=== PATIENT | male | born 1970 | race Asian ===

== ENCOUNTER 2019-01-31 09:18 | Outpatient (CLI) | payer SELFPAY | END 2019-01-31 09:19 | disposition EMS.NT | LOC: EMS 09:18 | PROVIDERS: ATTEND Surgery | DX: R42 Dizziness and giddiness (principal); R53.1 Weakness ==

== ENCOUNTER 2019-10-23 13:20 | Outpatient (CLI) | payer MEDICARE | END 2019-10-23 13:21 | disposition home or self-care (01) | LOC: COV 13:20 | PROVIDERS: ATTEND Family Medicine | DX: Z20.828 Contact with and (suspected) exposure to other viral communicable diseases (principal) ==

== ENCOUNTER 2019-12-13 07:34 | Outpatient (CLI) | payer MEDICARE | END 2019-12-13 07:35 | disposition critical access hospital (66) | LOC: EMS 07:34 | PROVIDERS: ATTEND Surgery | DX: R47.81 Slurred speech (principal); R26.9 Unspecified abnormalities of gait and mobility | CPT/HCPCS: A0425; A0427 ==

== ENCOUNTER 2019-12-13 07:56 | Emergency (ER) | payer MEDICARE ==
[2019-12-13] MEDS ORDERED: SODIUM CHLORIDE 0.9% 1,000 ML IV STA (08:02)
--- NOTE | 2019-12-13 08:05 | ED Physician Documentation ---
PD HPI FOCAL NEURO - Stated complaint Stated Complaint: POSS STROKE - History obtained from History obtained from: Patient, EMS - History of Present Illness Timing - onset: Today (awoke with symptoms of trouble speaking and walking, increased right arm and leg weakness. Had dialysis yesterday without problems. [place] usual baseline going to bed last night.) Timing - duration: Hours (Unknown onset but sometime between last night and this morning.) Timing - details: Abrupt onset, Still present Severity of deficit: Moderate Weakness: Arm, Leg, Left Numbness: Arm, Leg, Left Associated symptoms: Other (trouble speaking today). No: Headache, Nausea / vomiting, Fall, Head injury Baseline status: positive: Cane Similar symptoms before: Other (remote CVA with some residual weakness of leg. Not to this degree.) Recently seen: Clinic (dialysis yesterday) Review of Systems Ten Systems: 10 systems reviewed and negative Constitutional: denies: Fever, Chills Nose: denies: Rhinorrhea / runny nose, Congestion Throat: denies: Sore throat Cardiac: denies: Chest pain / pressure, Palpitations Respiratory: denies: Dyspnea, Cough GI: denies: Abdominal Pain, Nausea, Vomiting, Diarrhea Neurologic: reports: Focal weakness, Difficulty speaking. denies: Generalized weakness, Near syncope, Headache, Head injury Endocrine: denies: Weight loss Immunocompromised: denies: Immunocompromised PD PAST MEDICAL HISTORY - Past Medical History Cardiovascular: Hypertension Endocrine/Autoimmune: Type 1 diabetes - Past Surgical History Past Surgical History: No - Present Medications Home Medications: Ambulatory Orders Medication Instructions Recorded Confirmed Insulin NPH Human [NovoLIN N] 16 unit SQ BID 12/24/12 12/13/19 Insulin Regular, Human [Humulin R] 12 units INJ BID 12/24/12 12/24/12 Bumetanide 2 mg PO BID 12/13/19 12/13/19 Calcium Acetate [Phoslo] 667 mg PO TIDWM 12/13/19 12/13/19 Clopidogrel [Plavix] 75 mg PO DAILY 12/13/19 12/13/19 Fluoxetine HCl 20 mg PO DAILY 12/13/19 12/13/19 Insulin Aspart Prot/Insuln Asp 0 unit INJ DAILY 12/13/19 12/13/19 [Novolog Mix 70-30 Flexpen Syrn] Insulin Detemir [Levemir Flextouch] 0 unit SUBQ DAILY 12/13/19 12/13/19 Lansoprazole [Prevacid] 15 mg PO DAILY 12/13/19 12/13/19 Pravastatin [Pravachol] 40 mg PO DAILY 12/13/19 12/13/19 Vitamin B Complex/Folic Acid 0.4 mg PO DAILY 12/13/19 12/13/19 [B-Complex Tablet] - Allergies Allergies/Adverse Reactions: Allergies Allergy/AdvReac Type Severity Reaction Status Date / Time gabapentin Allergy Unknown Verified 12/13/19 08:34 nortriptyline Allergy Unknown Verified 12/13/19 08:34 - Social History Does the pt smoke?: Yes Smoking Status: Current every day smoker Does the pt drink ETOH?: Yes Does the pt have substance abuse?: No PD ED PE NORMAL - Vitals Vital signs reviewed: Yes - General General: Alert and oriented X 3, No acute distress, Well developed/nourished - Cardiac Cardiac: RRR, No murmur - Respiratory Respiratory: Clear bilaterally - Abdomen Abdomen: Soft, Non tender - Back Back: No CVA TTP - Derm Derm: Normal color, Warm and dry - Extremities Extremities: No tenderness to palpate, Normal ROM s pain, No edema - Neuro Neuro: Alert and oriented X 3, 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 No: No motor deficit, No sensory deficit, Normal speech NIHSS - Level of Consciousness Level of consciousness: (0) Alert, Keenly responsive LOC Questions: (0) Answers both Q's correct LOC Commands: (0) Performs both correctly - Gaze Best Gaze: (0) Normal - Visual Visual: (0) No loss - Facial Palsy Facial Palsy: (0) Normal, symmetrical movement - Motor Arms (both separate) Motor Arm (right): (0) No drift Motor Arm (left): (1) Drift - Motor Legs (both separate) Motor Leg (right): (0) No drift Motor Leg (left): (2) Some effort against gravity - Limb Ataxia Limb Ataxia: (1) Present in 1 limb - Sensory Sensory: (0) Normal - Best Language Best Language: (1) [id number] - Dysarthria Dysarthria: (0) Normal - Extinction and Inattention (formally neg Extinction and inattention: (0) No abnormality - Total Score/Results Total Score/Result: 5 Results - Vitals Vitals: Vital Signs - 24 hr 12/13/19 12/13/19 12/13/19 07:57 08:20 08:49 Temperature Heart Rate 63 63 63 Respiratory 16 20 22 Rate Blood Pressure 214/89 H 221/100 H 215/90 H O2 Saturation 100 100 100 12/13/19 12/13/19 12/13/19 09:32 10:14 10:35 Temperature 36.8 C Heart Rate 60 65 64 Respiratory 18 16 14 Rate Blood Pressure 218/105 H 213/90 H 206/90 H O2 Saturation 100 100 100 12/13/19 12/13/19 12/13/19 11:14 12:18 12:30 Temperature 36.7 C Heart Rate 63 89 76 Respiratory 16 16 12 Rate Blood Pressure 255/94 H 241/113 H 202/76 H O2 Saturation 100 99 100 12/13/19 13:06 Temperature Heart Rate 61 Respiratory 16 Rate Blood Pressure 197/92 H O2 Saturation 98 Oxygen O2 Source Room air - Labs Labs: Laboratory Tests 12/13/19 12/13/19 08:02 08:17 WBC 5.9 RBC 4.23 L Hgb 13.0 L Hct 37.8 L MCV 89.4 MCH 30.7 MCHC 34.4 RDW 12.2 Plt Count 283 MPV 9.3 Neut # (Auto) 3.7 Lymph # (Auto) 1.3 L [place] # (Auto) 0.5 Eos # (Auto) 0.3 Baso # (Auto) 0.1 Absolute Nucleated RBC 0.00 Nucleated RBC % 0.0 Sodium 141 Potassium 4.0 Chloride 100 L Carbon Dioxide 27 Anion Gap 14.0 H BUN 56 H Creatinine 4.9 H Estimated GFR (MDRD) 13 L Glucose 259 H Calcium 9.4 Magnesium 2.5 Total Bilirubin 0.5 AST 16 ALT 21 Alkaline Phosphatase 66 Total Protein 7.6 Albumin 4.1 Globulin 3.5 Albumin/Globulin Ratio 1.2 Lipase 69 H - Rads (name of study) head CT-A Radiology: Prelim report reviewed (no acute process; no ICH. No LVO. ), See rad report PD MEDICAL DECISION MAKING - ED course Complexity details: reviewed results, re-evaluated patient (The patient remains with left-sided deficit. CT scan did not show any acute bleed or tumor. There is no large vessel occlusion on the HUFF portion. He needs further stroke evaluation. However due to his dialysis need tomorrow, we are unable to take care of him adequately here. I talked with Devon), considered differential (Concern for acute stroke versus bleed. Unknown onset time as he awoke with it. He is on clopidogrel blood thinner so not really a good thrombolytic candidate. He is also hypertensive. We will get CT scan and HUFF.), d/w patient Departure - Departure Disposition: 02 Transfer Acute Care Hosp Clinical Impression: Acute CVA (cerebrovascular accident), Left-sided weakness, Aphasia CKD (chronic kidney disease) Qualifiers: Chronic kidney disease stage: on chronic dialysis Qualified Code(s): N18.6 - End stage renal disease Condition: Stable
[2019-12-13 08:10] LABS: BASOPHILS # (AUTO) 0.1 10^3/uL (0.0-0.1); EOSINOPHILS # (AUTO) 0.3 10^3/uL (0.0-0.7); EOSINOPHILS % (AUTO) 5.8 %; LYMPHOCYTES # (AUTO) 1.3 10^3/uL (1.5-3.5); LYMPHOCYTES % (AUTO) 21.5 %; MEAN CORPUSCULAR HEMOGLOBIN 30.7 pg (27.0-31.0); MEAN CORPUSCULAR HGB CONC 34.4 g/dL (32.0-36.0); MEAN CORPUSCULAR VOLUME 89.4 fL (80.0-94.0); MEAN PLATELET VOLUME 9.3 fL (7.4-11.4); MONOCYTES # (AUTO) 0.5 10^3/uL (0.0-1.0); MONOCYTES % (AUTO) 7.8 %; NEUTROPHILS # (AUTO) 3.7 10^3/uL (1.5-6.6); NEUTROPHILS % (AUTO) 63.4 %; PLT - PLATELET COUNT 283 10^3/uL (130-450); RED BLOOD COUNT 4.23 10^6/uL (4.70-6.10); RED CELL DISTRIBUTION WIDTH 12.2 % (12.0-15.0); WHITE BLOOD COUNT 5.9 x10^3/uL (4.8-10.8)
[2019-12-13 08:24] LABS: ALBUMIN 4.1 g/dL (3.2-5.5); ALBUMIN/GLOBULIN RATIO 1.2 (1.0-2.2); BILIRUBIN,TOTAL 0.5 mg/dL (0.2-1.0); CALCIUM 9.4 mg/dL (8.5-10.3); CREATININE 4.9 mg/dL (0.6-1.2); MAGNESIUM 2.5 mg/dL (1.7-2.8); TOTAL PROTEIN 7.6 g/dL (6.7-8.2)
[2019-12-13] MEDS ORDERED: IOVERSOL 320 100 ML VIAL IVP ONE (08:31)
--- NOTE | 2019-12-13 08:42 | CT Report ---
PROCEDURE: ANGIO NECK W INDICATIONS: Left-sided facial droop, left neck pain CONTRAST: IV CONTRAST: Optiray 320 ml: 100 PO CONTRAST: *NO PO CONTRAST TECHNIQUE: After the administration of intravenous contrast, 1.5 mm axial sections acquired from the aortic arch to the [place] of [place]. Coronal 3-D maximum intensity projection (MIP) and/or volume rendering ref ormats were then performed. For radiation dose reduction, the following was used: automated exposur e control, adjustment of mA and/or kV according to patient size. COMPARISON: None. FINDINGS: Image quality: Excellent. Carotid system: The great vessels demonstrate a conventional anatomy as they arise from the aortic a rch. The origins of the common carotid arteries appear patent. The common carotid arteries demonstr ate normal calibers and courses. The bifurcation regions appear normal bilaterally. The internal ca rotid arteries demonstrate normal caliber and course. Posterior circulation: The origins of the vertebral arteries appear patent. The more superior porti ons of the vertebral arteries demonstrate normal course and caliber. They join to form a normal appe aring basilar artery. Soft tissues: Visualized neck soft tissues demonstrate no suspicious abnormalities. The thyroid gla nd is normal in size. Bones: No suspicious bony lesions. Visualized cervical spine appears normally aligned. IMPRESSION: No evidence of dissection or other acute vascular injury in the neck. No hemodynamically significant stenosis of the carotid and vertebral artery systems. Mild atherosclerosis of the distal common carotid arteries, carotid bifurcations, and origins of the internal carotid arteries. Mild atherosclerosis in the left greater than right carotid siphons. The estimate of stenosis included in the report of the imaging study was calculated using the NASCET method. Reviewed by: Mehrdad Cummings MD on 12/13/2019 8:41 AM PDT Approved by: Mehrdad Cummings MD on 12/13/2019 8:41 AM PDT Station ID: [id number]
--- NOTE | 2019-12-13 08:45 | CT Report ---
PROCEDURE: ANGIO HEAD W/WO INDICATIONS: L sided facial droop CONTRAST: IV CONTRAST: Optiray 320 ml: 100 PO CONTRAST: *NO PO CONTRAST TECHNIQUE: Precontrast 4.5 mm thick angled axial sections acquired from the foramen magnum to the vertex. Afte r the administration of intravenous contrast, 1 mm thick sections acquired through the [place] of Will is. Postcontrast 4.5 mm thick sections then re-acquired from the foramen magnum to the vertex. 3-di mensional ztgpjio-ceckhvwat-eewymblzrh (MIP) and/or volume rendering reformats were acquired of the c entral intracranial vasculature. For radiation dose reduction, the following was used: automated ex posure control, adjustment of mA and/or kV according to patient size. COMPARISON: None. FINDINGS: Image quality: Excellent. Anterior circulation: Atherosclerotic calcifications and plaque are present along the cavernous carot ids and carotid siphons, without hemodynamically significant stenosis. The intracranial internal carvalho tid arteries and M1 segments demonstrate caliber although there is some luminal irregularity likely r eflecting noncalcified intracranial atherosclerosis. Normal branch configuration and caliber of the a nterior and middle cerebral arteries. Posterior circulation: V4 segments are codominant and join to form a normal appearing basilar artery with no evidence of dissection or aneurysm. No hemodynamically significant stenosis in the posterior circulation. CSF spaces: Ventricles are normal in size and shape. Basal cisterns are patent. No extra-axial flu id collections. Brain: No midline shift. No intracranial bleeds or masses. Basilio-white matter interface appears int act. Skull and face: Calvarium and facial bones appear intact, without suspicious lesions. High density material in the right globe likely reflecting prior vitreous injection therapy Sinuses: Visualized sinuses and mastoids are clear. IMPRESSION: No hemodynamically significant stenosis or occlusion of the major intracranial arterial circulation. Mild atherosclerotic narrowing of the cavernous carotids and carotid siphons along with the intracran ial carotid termini and M1 segments. Reviewed by: Mehrdad Cummings MD on 12/13/2019 8:43 AM PDT Approved by: Mehrdad Cummings MD on 12/13/2019 8:43 AM PDT Station ID: [id number]
[2019-12-13] MEDS ORDERED: ENALAPRILAT 1.25 MG/ML VIAL IVP STA (12:28)
[2019-12-13 13:37] VITALS: BP 196/90
== END 2019-12-13 13:40 | disposition short-term general hospital (02) ==
LOC: EDUNIT# → ED 07:56
DX: I63.9 Cerebral infarction, unspecified (principal); R47.01 Aphasia; G81.94 Hemiplegia, unspecified affecting left nondominant side; R29.705 NIHSS score 5; I12.0 Hypertensive chronic kidney disease with stage 5 chronic kidney disease or end stage renal disease; E10.22 Type 1 diabetes mellitus with diabetic chronic kidney disease; N18.6 End stage renal disease; Z99.2 Dependence on renal dialysis; Z86.73 Personal history of transient ischemic attack (TIA), and cerebral infarction without residual deficits; Z79.02 Long term (current) use of antithrombotics/antiplatelets; F17.200 Nicotine dependence, unspecified, uncomplicated
CPT/HCPCS: 36415; 70496; 70498; 80053; 83690; 83735; 85025; 93005; 99285; Q9967

== ENCOUNTER 2020-02-11 23:40 | Outpatient (CLI) | payer MEDICARE | END 2020-02-11 23:41 | disposition critical access hospital (66) | LOC: EMS 23:40 | PROVIDERS: ATTEND Surgery | DX: R11.10 Vomiting, unspecified (principal); R05 Cough | CPT/HCPCS: A0425; A0429 ==

== ENCOUNTER 2020-02-11 23:45 | Emergency (ER) | payer MEDICARE ==
--- NOTE | 2020-02-12 00:01 | ED Physician Documentation ---
PD HPI NVD - Stated complaint Stated Complaint: N/V - Chief complaint Chief Complaint: Abd Pain - History obtained from History obtained from: Patient (minimal contribution from patient; only answers a few questions, and limited to simple yes/no answers), EMS - History of Present Illness Timing - onset: Today Timing - details: Abrupt onset Associated symptoms: No: Fever Recently seen: Admitted, Transferred, Other (see narrative below) - Additonal information Additional information: BIBA from [facility]. Patient had HD earlier today and upon returning to [facility], had two episoides of emesis of dark black material. Complex medical history that includes CVA for which he was evaluated in this ED nearly 2 months ago, transferred to [facility] and subsequently transferred to [facility] from where he was just discharged 5 days ago. He has a PEG tube and has severe neurologic deficits as a result of his previous CVAs. Review of Systems Unable to obtain: Other (difficult to obtain ROS (and thus very limited ROS) due to few questions answered and then only with yes, no, or head nod/shake) Respiratory: reports: Cough (x 1 week) GI: reports: Nausea, Vomiting. denies: Abdominal Pain Neurologic: denies: Headache PD PAST MEDICAL HISTORY - Past Medical History Cardiovascular: Hypertension Neuro: CVA Endocrine/Autoimmune: Type 1 diabetes : Dialysis Psych: Depression - Past Surgical History Past Surgical History: No - Present Medications Home Medications: Ambulatory Orders Medication Instructions Recorded Confirmed Clopidogrel [Plavix] 75 mg PO DAILY 12/13/19 02/12/20 Lansoprazole [Prevacid] 30 mg PO DAILY 12/13/19 02/12/20 Aspirin [Aspirin EC] 81 DAILY 02/12/20 Atorvastatin [Lipitor] 80 DAILY 02/12/20 Insulin Glargine [Lantus Solostar] 15 units HS 02/12/20 02/12/20 Insulin Glargine [Lantus Solostar] 20 units DAILY 02/12/20 02/12/20 Insulin Lispro [Admelog Solostar] 02/12/20 02/12/20 Losartan [Cozaar] 100 mg DAILY 02/12/20 02/12/20 amLODIPine [Norvasc] 10 DAILY 02/12/20 cloNIDine 0.3 MG PATCH 1 patch 02/12/20 [[id number]] hydrALAZINE [Apresoline] 10 TID 02/12/20 - Allergies Allergies/Adverse Reactions: Allergies Allergy/AdvReac Type Severity Reaction Status Date / Time gabapentin Allergy Unknown Verified 12/13/19 08:34 nortriptyline Allergy Unknown Verified 12/13/19 08:34 - Social History Does the pt smoke?: Yes Smoking Status: Current every day smoker Does the pt drink ETOH?: Yes Does the pt have substance abuse?: No - Immunizations Immunizations are current?: Yes - POLST Patient has POLST: No PD ED PE NORMAL - Vitals Vital signs reviewed: Yes - General General: Well developed/nourished, Other (awake, alert. intermittent eye contact. answers few questions as noted above. follows some simple commands. ) - HEENT HEENT: Moist mucous membranes - Cardiac Cardiac: No murmur - Respiratory Respiratory: No respiratory distress, Clear bilaterally - Abdomen Abdomen: Soft, Non tender, Other (echymoses bilateral lower abdomen c/w sq injections. g-tube in place without evidence of infection) - Derm Derm: Normal color, Other (mild diaphoresis) PD ED PE EXPANDED - Cardiac Cardiac: Tachy, Regular Rhythm - Neuro Neuro: Other (RUE contracture) Results - Vitals Vitals: Vital Signs - 24 hr 02/11/20 02/12/20 02/12/20 23:50 01:57 03:07 Temperature 37.1 C 37.2 C 37.7 C Heart Rate 115 H 114 H 125 H Respiratory 14 13 27 H Rate Blood Pressure 178/99 H 145/95 H 155/95 H O2 Saturation 97 100 98 02/12/20 02/12/20 02/12/20 05:00 07:00 07:39 Temperature 37.4 C 37.2 C Heart Rate 114 H 111 H 108 H Respiratory 17 18 19 Rate Blood Pressure 151/88 H 154/90 H 147/95 H O2 Saturation 93 93 92 02/12/20 02/12/20 02/12/20 08:50 10:00 11:00 Temperature 37.6 C Heart Rate 123 H 124 H 118 H Respiratory 17 18 18 Rate Blood Pressure 168/86 H 160/90 H 162/71 H O2 Saturation 94 94 95 02/12/20 02/12/20 02/12/20 13:00 15:00 16:44 Temperature 37.7 C 37.5 C Heart Rate 119 H 118 H 117 H Respiratory 16 16 26 H Rate Blood Pressure 121/78 166/103 H 170/94 H O2 Saturation 95 96 93 02/12/20 16:57 Temperature Heart Rate 116 H Respiratory 16 Rate Blood Pressure 177/101 H O2 Saturation 95 Oxygen O2 Source Room air - Labs Labs: Laboratory Tests 02/11/20 02/11/20 02/12/20 00:25 00:25 00:15 WBC 10.5 RBC 3.24 L Hgb 9.9 L Hct 30.2 L MCV 93.2 MCH 30.6 MCHC 32.8 RDW 12.7 Plt Count 407 MPV 10.0 Neut # (Auto) 8.3 H Lymph # (Auto) 1.1 L [place] # (Auto) 0.6 Eos # (Auto) 0.3 Baso # (Auto) 0.1 Absolute Nucleated RBC 0.00 Nucleated RBC % 0.0 VBG pH VBG pCO2 VBG pO2 VBG HCO3 VBG Total CO2 VBG O2 Saturation VBG Base Excess Sodium 136 Potassium 4.3 Chloride 90 L Carbon Dioxide 29 Anion Gap 17.0 H BUN 44 H Creatinine 3.8 H Estimated GFR (MDRD) 17 L Glucose 346 H Lactic Acid Calcium 10.0 Total Bilirubin 0.7 AST 191 H ALT 335 H Alkaline Phosphatase 180 H Total Protein 8.1 Albumin 3.9 Globulin 4.2 Albumin/Globulin Ratio 0.9 L Lipase 34 Urine Color Urine Clarity Urine pH Ur Specific [place] Urine Protein Urine Glucose (UA) Urine Ketones Urine Occult Blood Urine Nitrite Urine Bilirubin Urine Urobilinogen Ur Leukocyte Esterase Urine RBC Urine WBC Ur Squamous Epith Cells Urine Bacteria Urine Casts Ur Microscopic Review Urine Culture Comments Nasal Adenovirus (PCR) NOT DETECTED Nasal B. parapertussis DNA (PCR) NOT DETECTED Nasal Coronavir 229E PCR NOT DETECTED Nasal Coronavir HKU1 PCR NOT DETECTED Nasal Coronavir NL63 PCR NOT DETECTED Nasal Coronavir OC43 PCR NOT DETECTED Nasal Enterovir/Rhinovir PCR NOT DETECTED Nasal Influenza B PCR NOT DETECTED Nasal Influenza A PCR NOT DETECTED Nasal Parainfluen 1 PCR NOT DETECTED Nasal Parainfluen 2 PCR NOT DETECTED Nasal Parainfluen 3 PCR NOT DETECTED Nasal Parainfluen 4 PCR NOT DETECTED Nasal RSV (PCR) NOT DETECTED Nasal B.pertussis DNA PCR NOT DETECTED Nasal C.pneumoniae (PCR) NOT DETECTED Jimmy Human Metapneumo PCR NOT DETECTED Nasal M.pneumoniae (PCR) NOT DETECTED Nasal SARS-CoV-2 (PCR) NOT DETECTED Gastric Fluid pH Gastric Occult Blood Serum Ketones 02/12/20 02/12/20 02/12/20 00:20 00:25 10:08 WBC RBC Hgb Hct MCV MCH MCHC RDW Plt Count MPV Neut # (Auto) Lymph # (Auto) [place] # (Auto) Eos # (Auto) Baso # (Auto) Absolute Nucleated RBC Nucleated RBC % VBG pH VBG pCO2 VBG pO2 VBG HCO3 VBG Total CO2 VBG O2 Saturation VBG Base Excess Sodium Potassium Chloride Carbon Dioxide Anion Gap BUN Creatinine Estimated GFR (MDRD) Glucose Lactic Acid 2.1 Calcium Total Bilirubin AST ALT Alkaline Phosphatase Total Protein Albumin Globulin Albumin/Globulin Ratio Lipase Urine Color Urine Clarity Urine pH Ur Specific [place] Urine Protein Urine Glucose (UA) Urine Ketones Urine Occult Blood Urine Nitrite Urine Bilirubin Urine Urobilinogen Ur Leukocyte Esterase Urine RBC Urine WBC Ur Squamous Epith Cells Urine Bacteria Urine Casts Ur Microscopic Review Urine Culture Comments Nasal Adenovirus (PCR) Nasal B. parapertussis DNA (PCR) Nasal Coronavir 229E PCR Nasal Coronavir HKU1 PCR Nasal Coronavir NL63 PCR Nasal Coronavir OC43 PCR Nasal Enterovir/Rhinovir PCR Nasal Influenza B PCR Nasal Influenza A PCR Nasal Parainfluen 1 PCR Nasal Parainfluen 2 PCR Nasal Parainfluen 3 PCR Nasal Parainfluen 4 PCR Nasal RSV (PCR) Nasal B.pertussis DNA PCR Nasal C.pneumoniae (PCR) Jimmy Human Metapneumo PCR Nasal M.pneumoniae (PCR) Nasal SARS-CoV-2 (PCR) Gastric Fluid pH 6.5 Gastric Occult Blood Negative Serum Ketones NEGATIVE 02/12/20 02/12/20 10:08 13:42 WBC RBC Hgb Hct MCV MCH MCHC RDW Plt Count MPV Neut # (Auto) Lymph # (Auto) [place] # (Auto) Eos # (Auto) Baso # (Auto) Absolute Nucleated RBC Nucleated RBC % VBG pH 7.470 H VBG pCO2 48.2 VBG pO2 37.6 VBG HCO3 34.3 H VBG Total CO2 35.8 H VBG O2 Saturation 74.8 VBG Base Excess 9.4 H Sodium Potassium Chloride Carbon Dioxide Anion Gap BUN Creatinine Estimated GFR (MDRD) Glucose Lactic Acid Calcium Total Bilirubin AST ALT Alkaline Phosphatase Total Protein Albumin Globulin Albumin/Globulin Ratio Lipase Urine Color YELLOW Urine Clarity CLEAR Urine pH 7.5 Ur Specific [place] 1.015 Urine Protein 100 H Urine Glucose (UA) 500 H Urine Ketones NEGATIVE Urine Occult Blood NEGATIVE Urine Nitrite NEGATIVE Urine Bilirubin NEGATIVE Urine Urobilinogen 0.2 (NORMAL) Ur Leukocyte Esterase NEGATIVE Urine RBC 0-5 Urine WBC 0-3 Ur Squamous Epith Cells FEW Squamous Urine Bacteria Few Urine Casts 0-2 Hyaline Casts Ur Microscopic Review INDICATED Urine Culture Comments NOT INDICATED Nasal Adenovirus (PCR) Nasal B. parapertussis DNA (PCR) Nasal Coronavir 229E PCR Nasal Coronavir HKU1 PCR Nasal Coronavir NL63 PCR Nasal Coronavir OC43 PCR Nasal Enterovir/Rhinovir PCR Nasal Influenza B PCR Nasal Influenza A PCR Nasal Parainfluen 1 PCR Nasal Parainfluen 2 PCR Nasal Parainfluen 3 PCR Nasal Parainfluen 4 PCR Nasal RSV (PCR) Nasal B.pertussis DNA PCR Nasal C.pneumoniae (PCR) Jimmy Human Metapneumo PCR Nasal M.pneumoniae (PCR) Nasal SARS-CoV-2 (PCR) Gastric Fluid pH Gastric Occult Blood Serum Ketones - Rads (name of study) CT A/P with contrast via G-tube Radiology: Prelim report reviewed, See rad report CT head Radiology: Prelim report reviewed, See rad report PD MEDICAL DECISION MAKING - ED course Complexity details: reviewed old records (d/c summary from [place] received via fax and reviewed by me), reviewed results, re-evaluated patient, considered differential, d/w patient ED course: long ED stay. EMS initially planned to take patient to [place] but unable to make it to [facility] on time. patient had received zofran SLOT MANAGER but continued to have emesis. given zofran in ED x 2 doses as well as IV reglan; vomiting did not resolve although became less frequent. CT A/P with contrast via G-tube (only about half of the contrast was instilled via g-tube when he had more episodes of emesis and thus further instillation of contrast stopped and CT then performed); no emergent findings nor findings that would explain ongoing emesis. Reevaluated many times during ED stay. he had significant decreased level of consciousness and was minimally responsive to sternal rub at one point and thus CT head performed with reassuring results; without specific intervention, he subsequently returned to level of consciousness and interaction correlating with when I first evaluated him tonight. Due to his ongoing vomiting despite multiple doses of antinauseants, as well as persistent tachycardia (sinus tachycardia on monitor 110s-120s without hypotension) as well as elevated LFTs (new from [facility]FT in November; the records from [place] do not reference LFTs), patient would benefit from admission. Dr. Eagle recommends transfer, as patient will likely need to stay at least 24 hours and he will again need dialysis to [place]. I discussed the case with the [place] transfer center coordinator. Repaged after an hour and was told they are trying to procure appropriate bed for this patient and will call back when they have done so. Care of patient turned over to Dr. Coley pending disposition Departure - Departure Disposition: 02 Transfer Acute Care Hosp Clinical Impression: Vomiting, Dialysis patient, Tachycardia Condition: Stable Discharge Date/Time: 02/12/20 17:16
[2020-02-12] MEDS ORDERED: ONDANSETRON 4 MG/2 ML VIAL IVP STA ×2 (00:18→08:30)
[2020-02-12 00:33] LABS: BASOPHILS # (AUTO) 0.1 10^3/uL (0.0-0.1); BASOPHILS % (AUTO) 0.7 %; EOSINOPHILS # (AUTO) 0.3 10^3/uL (0.0-0.7); EOSINOPHILS % (AUTO) 3.1 %; HGB - HEMOGLOBIN 9.9 g/dL (14.0-18.0); LYMPHOCYTES # (AUTO) 1.1 10^3/uL (1.5-3.5); LYMPHOCYTES % (AUTO) 10.7 %; MEAN CORPUSCULAR HEMOGLOBIN 30.6 pg (27.0-31.0); MEAN CORPUSCULAR HGB CONC 32.8 g/dL (32.0-36.0); MEAN CORPUSCULAR VOLUME 93.2 fL (80.0-94.0); MONOCYTES # (AUTO) 0.6 10^3/uL (0.0-1.0); NEUTROPHILS # (AUTO) 8.3 10^3/uL (1.5-6.6); PLT - PLATELET COUNT 407 10^3/uL (130-450); RED BLOOD COUNT 3.24 10^6/uL (4.70-6.10); RED CELL DISTRIBUTION WIDTH 12.7 % (12.0-15.0); WHITE BLOOD COUNT 10.5 x10^3/uL (4.8-10.8)
[2020-02-12 00:33] LABS: GASTROCCULT Negative (Negative)
[2020-02-12 00:46] LABS: ALBUMIN 3.9 g/dL (3.2-5.5); ALBUMIN/GLOBULIN RATIO 0.9 (1.0-2.2); BILIRUBIN,TOTAL 0.7 mg/dL (0.2-1.0); CREATININE 3.8 mg/dL (0.6-1.2); TOTAL PROTEIN 8.1 g/dL (6.7-8.2)
[2020-02-12] MEDS ORDERED: IOVERSOL 320 50 ML VIAL ONE (00:57)
[2020-02-12 01:37] LABS: C. PNEUMONIAE- RESP PCR PANEL NOT DETECTED
[2020-02-12] MEDS ORDERED: METOCLOPRAMIDE 10 MG/2 ML VIAL IVP STA (03:03)
--- NOTE | 2020-02-12 08:12 | CT Report ---
PROCEDURE: HEAD WO INDICATIONS: AMS TECHNIQUE: Noncontrast 4.5 mm thick angled axial sections acquired from the foramen magnum to the vertex. For r adiation dose reduction, the following was used: automated exposure control, adjustment of mA and/or kV according to patient size. COMPARISON: Prior CT angiogram of head 12/13/2019. FINDINGS: Image quality: Excellent. CSF spaces: Basal cisterns are patent. No extra-axial fluid collections. Ventricles are normal in size and shape. Brain: No midline shift. No intracranial masses or hemorrhage. Basilio-white matter interface is norm al. Skull and face: Calvarium and visualized facial bones are intact, without suspicious lesions. Sinuses: Visualized sinuses and mastoids are clear. IMPRESSION: Moderate microvascular atherosclerotic change in the deep white matter of each hemispher e. No sign of trauma or intracranial hemorrhage. There is a asymmetric appearance of the basilar cist erns due to tilt of the patient within the PET/CT scanner. When this is taken into account no definit e focal ischemic injury is found. Reviewed by: Rui Henriquez MD on 02/12/2020 8:11 AM PST Approved by: Rui Henriquez MD on 02/12/2020 8:11 AM PST Station ID: [id number]
--- NOTE | 2020-02-12 08:20 | CT Report ---
PROCEDURE: Abdomen/Pelvis WO INDICATIONS: N/V TECHNIQUE: Noncontrast 5 mm thick sections acquired from the diaphragms to the symphysis. 5 mm coronal and sagi ttal reformats were then performed. For radiation dose reduction, the following was used: automated exposure control, adjustment of mA and/or kV according to patient size. COMPARISON: None. FINDINGS: Image quality: Reduced by absence of intravenous contrast. ABDOMEN: Lung bases: Lung bases are clear except for a 5 mm focal radiodensity within the right middle lobe, blurred by patient motion during image acquisition. Heart size is normal. Solid organs: Liver and spleen are normal in size. Gallbladder appears normal there is a mild to mo derate degree of generalized colonic obstipation. Pancreas is normal in contours. No adrenal nodule s. Kidneys are normal in size, without hydronephrosis or nephrolithiasis. Peritoneum and bowel: Unenhanced bowel loops demonstrate normal wall thickness and caliber. No free fluid or air. Nodes and vessels: No retroperitoneal or mesenteric adenopathy by size criteria. Aorta and inferior vena cava are normal in caliber. Gastrostomy tube in normal position. Miscellaneous: No ventral hernias. PELVIS: Genitourinary: Bladder wall thickness is normal. Miscellaneous: No inguinal hernias or adenopathy. Bones: No suspicious bony lesions. No vertebral body compression fractures. IMPRESSION: Mild to moderate colonic obstipation. Gastrostomy tube in normal position. No sign of intestinal obst ruction or perforation is found. Note is made of a 5 mm motion-blurred small nodule within the right middle lobe anteriorly, a nonspecific findings. Please correlate with the Fleischner Society guidelines for follow-up of incidentally found pulmonary nodules to determine whether follow-up noncontrast CT in 6 months is warranted. Reviewed by: Rui Henriquez MD on 02/12/2020 8:18 AM PST Approved by: Rui Henriquez MD on 02/12/2020 8:18 AM PST Station ID: [id number]
[2020-02-12] MEDS ORDERED: SODIUM CHLORIDE 0.9% 1,000 ML IV STA (09:56)
[2020-02-12] MEDS ORDERED: PROMETHAZINE INJ 25 MG in SODIUM CHLORIDE 0.9% 50 ML IV STA (09:56)
[2020-02-12] MEDS ORDERED: SODIUM CHLORIDE 0.9% 500 ML IV STA (10:07)
[2020-02-12 10:13] LABS: VBG BASE EXCESS 9.4 mmol/L (-2 - +2); VBG PCO2 48.2 mmHg (41-51); VBG PH 7.47 (7.31-7.41); VBG PO2 37.6 mmHg (25-47); VBG TOTAL CO2 35.8 mmol/L (24-29)
--- NOTE | 2020-02-12 12:06 | Ultrasound Report ---
PROCEDURE: Abdomen Limited INDICATIONS: LFT elevation TECHNIQUE: Real-time focused scanning was performed of the abdomen, with image documentation. COMPARISON: CT abdomen and pelvis 02/12/2020 FINDINGS: Increased hepatic parenchymal echogenicity, indicative of hepatic cirrhosis. No focal hepatic mass. N o intrahepatic biliary ductal dilatation. Normal caliber common duct. Normally distended gallbladder without wall thickening, sludge, or cholelithiasis. Visualized portions of the pancreas are within normal limits. Right kidney is echogenic but otherwise normal in appearance. IMPRESSION: Increased hepatic parenchymal echogenicity, consistent with hepatic steatosis. Echogenic right kidney consistent with chronic kidney disease. Reviewed by: Mehrdad Cummings MD on 02/12/2020 11:05 AM [facility] Approved by: Mehrdad Cummings MD on 02/12/2020 11:05 AM [facility] Station ID: [id number]
--- NOTE | 2020-02-12 13:45 | ED Physician Documentation ---
ED Addendum - Addendum Addendum: 02/12/20 13:41 Patient was signed out to me by Dr. Sandoval. Patient is awaiting transfer to [facility] in [place] for intractable vomiting. He has renal failure as well. He is on dialysis. Has been tachycardic throughout his emergency department stay. Unclear etiology. He was given IV fluids. He does make urine still. No fevers. Normal white count. No acute findings on CT of the abdomen pelvis. No acute findings on head CT. No acute findings on ultrasound of the abdomen. Patient has received Zofran, Reglan, Phenergan. Continues to have vomiting. Discussed the case with Dr. Taylor at 1340, hospitalist in [place] who graciously accepts in transfer. COBRA forms completed. CT Abd/pelvis IMPRESSION: Mild to moderate colonic obstipation. Gastrostomy tube in normal position. No sign of intestinal obstruction or perforation is found. Note is made of a 5 mm motion-blurred small nodule within the right middle lobe anteriorly, a nonspecific findings. CT head IMPRESSION: Moderate microvascular atherosclerotic change in the deep white matter of each hemisphere. No sign of trauma or intracranial hemorrhage. There is a asymmetric appearance of the basilar cisterns due to tilt of the patient within the PET/CT scanner. When this is taken into account no definite focal ischemic injury is found. RUQ Abd: IMPRESSION: Increased hepatic parenchymal echogenicity, consistent with hepatic steatosis. Echogenic right kidney consistent with chronic kidney disease. Departure - Departure Clinical Impression: Dialysis patient, Tachycardia Vomiting Qualifiers: Vomiting type: unspecified Vomiting Intractability: intractable Nausea presence: with nausea Qualified Code(s): R11.2 - Nausea with vomiting, unspecified Condition: Stable Results - Vitals Vitals: Vital Signs - 24 hr 02/11/20 02/12/20 02/12/20 23:50 01:57 03:07 Temperature 37.1 C 37.2 C 37.7 C Heart Rate 115 H 114 H 125 H Respiratory 14 13 27 H Rate Blood Pressure 178/99 H 145/95 H 155/95 H O2 Saturation 97 100 98 02/12/20 02/12/20 02/12/20 05:00 07:00 07:39 Temperature 37.4 C 37.2 C Heart Rate 114 H 111 H 108 H Respiratory 17 18 19 Rate Blood Pressure 151/88 H 154/90 H 147/95 H O2 Saturation 93 93 92 02/12/20 02/12/20 02/12/20 08:50 10:00 11:00 Temperature 37.6 C Heart Rate 123 H 124 H 118 H Respiratory 17 18 18 Rate Blood Pressure 168/86 H 160/90 H 162/71 H O2 Saturation 94 94 95 02/12/20 13:00 Temperature 37.7 C Heart Rate 119 H Respiratory 16 Rate Blood Pressure 121/78 O2 Saturation 95 Oxygen O2 Source Room air - EKG (time done) 1358 Rate: Rate (enter#) (123) Rhythm: Sinus tachycardia Burna: Normal Intervals: Normal MO QRS: Normal Ischemia: Normal ST segments - Labs Labs: Laboratory Tests 02/11/20 02/11/20 02/12/20 00:25 00:25 00:15 WBC 10.5 RBC 3.24 L Hgb 9.9 L Hct 30.2 L MCV 93.2 MCH 30.6 MCHC 32.8 RDW 12.7 Plt Count 407 MPV 10.0 Neut # (Auto) 8.3 H Lymph # (Auto) 1.1 L [place] # (Auto) 0.6 Eos # (Auto) 0.3 Baso # (Auto) 0.1 Absolute Nucleated RBC 0.00 Nucleated RBC % 0.0 VBG pH VBG pCO2 VBG pO2 VBG HCO3 VBG Total CO2 VBG O2 Saturation VBG Base Excess Sodium 136 Potassium 4.3 Chloride 90 L Carbon Dioxide 29 Anion Gap 17.0 H BUN 44 H Creatinine 3.8 H Estimated GFR (MDRD) 17 L Glucose 346 H Lactic Acid Calcium 10.0 Total Bilirubin 0.7 AST 191 H ALT 335 H Alkaline Phosphatase 180 H Total Protein 8.1 Albumin 3.9 Globulin 4.2 Albumin/Globulin Ratio 0.9 L Lipase 34 Urine Color Urine Clarity Urine pH Ur Specific [place] Urine Protein Urine Glucose (UA) Urine Ketones Urine Occult Blood Urine Nitrite Urine Bilirubin Urine Urobilinogen Ur Leukocyte Esterase Urine RBC Urine WBC Ur Squamous Epith Cells Urine Bacteria Urine Casts Ur Microscopic Review Urine Culture Comments Nasal Adenovirus (PCR) NOT DETECTED Nasal B. parapertussis DNA (PCR) NOT DETECTED Nasal Coronavir 229E PCR NOT DETECTED Nasal Coronavir HKU1 PCR NOT DETECTED Nasal Coronavir NL63 PCR NOT DETECTED Nasal Coronavir OC43 PCR NOT DETECTED Nasal Enterovir/Rhinovir PCR NOT DETECTED Nasal Influenza B PCR NOT DETECTED Nasal Influenza A PCR NOT DETECTED Nasal Parainfluen 1 PCR NOT DETECTED Nasal Parainfluen 2 PCR NOT DETECTED Nasal Parainfluen 3 PCR NOT DETECTED Nasal Parainfluen 4 PCR NOT DETECTED Nasal RSV (PCR) NOT DETECTED Nasal B.pertussis DNA PCR NOT DETECTED Nasal C.pneumoniae (PCR) NOT DETECTED Jimmy Human Metapneumo PCR NOT DETECTED Nasal M.pneumoniae (PCR) NOT DETECTED Nasal SARS-CoV-2 (PCR) NOT DETECTED Gastric Fluid pH Gastric Occult Blood Serum Ketones 02/12/20 02/12/20 02/12/20 00:20 00:25 10:08 WBC RBC Hgb Hct MCV MCH MCHC RDW Plt Count MPV Neut # (Auto) Lymph # (Auto) [place] # (Auto) Eos # (Auto) Baso # (Auto) Absolute Nucleated RBC Nucleated RBC % VBG pH VBG pCO2 VBG pO2 VBG HCO3 VBG Total CO2 VBG O2 Saturation VBG Base Excess Sodium Potassium Chloride Carbon Dioxide Anion Gap BUN Creatinine Estimated GFR (MDRD) Glucose Lactic Acid 2.1 Calcium Total Bilirubin AST ALT Alkaline Phosphatase Total Protein Albumin Globulin Albumin/Globulin Ratio Lipase Urine Color Urine Clarity Urine pH Ur Specific [place] Urine Protein Urine Glucose (UA) Urine Ketones Urine Occult Blood Urine Nitrite Urine Bilirubin Urine Urobilinogen Ur Leukocyte Esterase Urine RBC Urine WBC Ur Squamous Epith Cells Urine Bacteria Urine Casts Ur Microscopic Review Urine Culture Comments Nasal Adenovirus (PCR) Nasal B. parapertussis DNA (PCR) Nasal Coronavir 229E PCR Nasal Coronavir HKU1 PCR Nasal Coronavir NL63 PCR Nasal Coronavir OC43 PCR Nasal Enterovir/Rhinovir PCR Nasal Influenza B PCR Nasal Influenza A PCR Nasal Parainfluen 1 PCR Nasal Parainfluen 2 PCR Nasal Parainfluen 3 PCR Nasal Parainfluen 4 PCR Nasal RSV (PCR) Nasal B.pertussis DNA PCR Nasal C.pneumoniae (PCR) Jimmy Human Metapneumo PCR Nasal M.pneumoniae (PCR) Nasal SARS-CoV-2 (PCR) Gastric Fluid pH 6.5 Gastric Occult Blood Negative Serum Ketones NEGATIVE 02/12/20 02/12/20 10:08 13:42 WBC RBC Hgb Hct MCV MCH MCHC RDW Plt Count MPV Neut # (Auto) Lymph # (Auto) [place] # (Auto) Eos # (Auto) Baso # (Auto) Absolute Nucleated RBC Nucleated RBC % VBG pH 7.470 H VBG pCO2 48.2 VBG pO2 37.6 VBG HCO3 34.3 H VBG Total CO2 35.8 H VBG O2 Saturation 74.8 VBG Base Excess 9.4 H Sodium Potassium Chloride Carbon Dioxide Anion Gap BUN Creatinine Estimated GFR (MDRD) Glucose Lactic Acid Calcium Total Bilirubin AST ALT Alkaline Phosphatase Total Protein Albumin Globulin Albumin/Globulin Ratio Lipase Urine Color YELLOW Urine Clarity CLEAR Urine pH 7.5 Ur Specific [place] 1.015 Urine Protein 100 H Urine Glucose (UA) 500 H Urine Ketones NEGATIVE Urine Occult Blood NEGATIVE Urine Nitrite NEGATIVE Urine Bilirubin NEGATIVE Urine Urobilinogen 0.2 (NORMAL) Ur Leukocyte Esterase NEGATIVE Urine RBC 0-5 Urine WBC 0-3 Ur Squamous Epith Cells FEW Squamous Urine Bacteria Few Urine Casts 0-2 Hyaline Casts Ur Microscopic Review INDICATED Urine Culture Comments NOT INDICATED Nasal Adenovirus (PCR) Nasal B. parapertussis DNA (PCR) Nasal Coronavir 229E PCR Nasal Coronavir HKU1 PCR Nasal Coronavir NL63 PCR Nasal Coronavir OC43 PCR Nasal Enterovir/Rhinovir PCR Nasal Influenza B PCR Nasal Influenza A PCR Nasal Parainfluen 1 PCR Nasal Parainfluen 2 PCR Nasal Parainfluen 3 PCR Nasal Parainfluen 4 PCR Nasal RSV (PCR) Nasal B.pertussis DNA PCR Nasal C.pneumoniae (PCR) Jimmy Human Metapneumo PCR Nasal M.pneumoniae (PCR) Nasal SARS-CoV-2 (PCR) Gastric Fluid pH Gastric Occult Blood Serum Ketones
[2020-02-12 13:52] LABS: BILIRUBIN,URINE NEGATIVE (NEGATIVE); GLUCOSE, URINE (UA) 500 mg/dL (NEGATIVE); KETONES,URINE (UA) NEGATIVE (NEGATIVE); LEUKOCYTE ESTERASE, URINE NEGATIVE (NEGATIVE); NITRITE,URINE NEGATIVE (NEGATIVE); OCCULT BLOOD,URINE NEGATIVE (NEGATIVE); PH,URINE 7.5 PH (5.0-7.5); PROTEIN,URINE 100 mg/dL (NEGATIVE); UROBILINOGEN,URINE 0.2 (NORMAL) E.U./dL (NORMAL)
[2020-02-12 13:53] LABS: CLARITY,URINE CLEAR (CLEAR)
[2020-02-12 14:18] LABS: BACTERIA,URINE Few /HPF (None Seen); CASTS, URINE 0-2 Hyaline Casts /LPF; RBC,URINE 0-5 /HPF (0-5); SQUAMOUS EPITHELIAL CELL,UR FEW Squamous (<= Few)
--- NOTE | 2020-02-12 14:42 | ED Physician Documentation ---
Departure - Departure Disposition: 02 Transfer Acute Care Hosp Clinical Impression: Dialysis patient, Tachycardia Vomiting Qualifiers: Vomiting type: unspecified Vomiting Intractability: intractable Nausea presence: with nausea Qualified Code(s): R11.2 - Nausea with vomiting, unspecified Condition: Stable
[2020-02-12 16:58] VITALS: BP 177/101
== END 2020-02-12 17:16 | disposition short-term general hospital (02) ==
LOC: EDUNIT# → ED 23:45
DX: Z86.73 Personal history of transient ischemic attack (TIA), and cerebral infarction without residual deficits (principal); R11.2 Nausea with vomiting, unspecified; I12.0 Hypertensive chronic kidney disease with stage 5 chronic kidney disease or end stage renal disease; N18.6 End stage renal disease; Z99.2 Dependence on renal dialysis; Z79.4 Long term (current) use of insulin; F17.200 Nicotine dependence, unspecified, uncomplicated; E10.22 Type 1 diabetes mellitus with diabetic chronic kidney disease; R00.0 Tachycardia, unspecified; Z20.828 Contact with and (suspected) exposure to other viral communicable diseases
CPT/HCPCS: 70450; 74176; 76705; 80053; 81001; 82009; 82803; 83605; 83690; 85025; 87631; 93005; 96365; 96375; 96376; 99284; 99285; J2765; J7040; 0202U; 81003; 87086